=== PATIENT | female | born 1995 | race African-American/Black ===

== ENCOUNTER 2016-06-18 16:23 | Emergency (ER) | payer SELFPAY ==
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
== END 2016-06-18 17:15 | disposition home or self-care (01) ==
LOC: CFTX 16:23
DX: S09.90XA Unspecified injury of head, initial encounter (principal); S80.811A Abrasion, right lower leg, initial encounter; V49.50XA Passenger injured in collision with unspecified motor vehicles in traffic accident, initial encounter
CPT/HCPCS: 70450; 84703; 99284